=== PATIENT | female | born 1980 | race Caucasian/White ===

== ENCOUNTER 2018-06-08 12:01 | Inpatient (IN) | payer BC ==
[2018-06-08] MEDS ORDERED: Misoprostol 200 MCG TAB ONE ×2 (12:52→17:24)
[2018-06-08 14:19] VITALS: BMI 26.6
[2018-06-08] MEDS ORDERED: Acetaminophen 500 MG TAB PO PRN (14:53)
[2018-06-08] MEDS ORDERED: Butorphanol Tartrate 1 MG/ML VIAL SLOW IVP PRN (14:53)
[2018-06-08] MEDS ORDERED: Promethazine HCl 25 MG/ML VIAL IM PRN (14:53)
[2018-06-08] MEDS ORDERED: Ondansetron PF 4 MG/2 ML Vial IVP PRN ×2 (14:53→19:46)
[2018-06-08] MEDS ORDERED: Docusate 100 MG CAP PO PRN (14:53)
[2018-06-08] MEDS ORDERED: Lactated Ringer's 1,000 ML IV SCH (15:00)
[2018-06-08 15:22] LABS: Hemoglobin 13.8 g/dL (12.0-16.0); Mean Corpuscular HGB CONC 33.7 g/dL (32.0-36.0); Mean Corpuscular Hemoglobin 31.7 pg (27.0-31.0); Mean Platelet Volume 8.6 fL (7.4-10.4); Platelet Count 276 thou/uL (130-400); RBC Distribution Width 11.7 % (11.5-14.5); Red Blood Cell (RBC) Count 4.36 mill/uL (4.20-5.40); White Blood Cell (WBC) Count 8.3 thou/uL (4.8-10.8)
[2018-06-08 15:44] LABS: HBSAg Index 0.36 S/CO (0-0.99); Hep B Surf Ag Non-Reactive S/CO (NonReactive); Syphilis Antibody Nonreactive (Nonreactive); Syphilis Antibody Index 0.01 S/CO (<1.00 Non-Reactive)
[2018-06-08] MEDS ORDERED: diphenhydrAMINE 25 MG CAP PO PRN (19:46)
[2018-06-08] MEDS ORDERED: Zolpidem Tartrate 5 MG TAB PO PRN (19:46)
[2018-06-08] MEDS ORDERED: Acetaminophen/Codeine 30-300mg Tablet PO PRN ×2 (19:46)
[2018-06-08] MEDS ORDERED: Ibuprofen 800 MG TAB PO SCH (20:00)
[2018-06-08] MEDS: Ibuprofen 800 MG TAB PO SCH (20:00)
[2018-06-08] MEDS ORDERED: Adacel (T-DAP) 0.5 ML SYRINGE IM ONE (21:00)
[2018-06-09] MEDS: Ibuprofen 800 MG TAB PO SCH (05:43)
[2018-06-09 07:53] VITALS: BP 100/53; TEMP 98.3
[2018-06-09] MEDS ORDERED: Ferrous Sulfate 325 MG TAB PO SCH (08:00)
== END 2018-06-09 08:54 | disposition home or self-care (01) | DRG 807 ==
LOC: L&D 12:01 → 3SE 06-09 01:39
PROVIDERS: ADMIT Obstetrics & Gynecology; ATTEND Obstetrics & Gynecology
PROC: 10E0XZZ Delivery of Products of Conception, External Approach (ICD-10-PCS; principal; 2018-06-08)
PROC: 3E0P7VZ Introduction of Hormone into Female Reproductive, Via Natural or Artificial Opening (ICD-10-PCS; 2018-06-08)
DX: O36.4XX0 Maternal care for intrauterine death, not applicable or unspecified (principal); Z37.1 Single stillbirth; Z3A.18 18 weeks gestation of pregnancy
CPT/HCPCS: 36415; 85027; 86780; 86850; 86900; 86901; 87340; J0595

== ENCOUNTER 2022-08-25 14:07 | Outpatient (CLI) | payer BC | END 2022-08-25 14:08 | disposition home or self-care (01) | LOC: BICMAMMO 14:07 | PROVIDERS: ATTEND Obstetrics & Gynecology | DX: N63.20 Unspecified lump in the left breast, unspecified quadrant (principal) | CPT/HCPCS: 77066; G0279 ==